=== PATIENT | male | born 1960 | race Caucasian/White ===

== ENCOUNTER 2018-09-22 21:54 | Emergency (ER) | payer SELFPAY ==
[2018-09-22 21:55] VITALS: BP 119/93
[2018-09-22] MEDS ORDERED: CLON-388 PO (21:57)
--- NOTE | 2018-09-22 21:59 | ER Report ---
History and Physical Time Seen By MD: 21:52 Hx. of Stated Complaint: BEEN DRINKING SINCE 7AM. FOUND AT [facility], FALLING DOWN, SENIOR LIVING CLEARANCE HPI/ROS CHIEF COMPLAINT: Skilled Nursing clearance HISTORY OF PRESENT ILLNESS: 58-year-old male brought in by police for long-term clearance. Patient with heavily slurred speech, appears grossly intoxicated. He has no injuries. He voices no complaints. He denies significant past medical history. REVIEW OF SYSTEMS: Respiratory: No cough, no dyspnea. Cardiovascular: No chest pain, no palpitations. Gastrointestinal: No vomiting, no abdominal pain. Musculoskeletal: No back pain. Home Meds Reported Medications Clonazepam (CLONAZEPAM) 0.5 Mg Tab.rapdis, 0.5 MG PO BID, #6 TAB 09/22/18 Reviewed Nurses Notes: Yes Old Medical Records Reviewed: Yes Constitutional Vital Sign - Last 24 Hours 09/22/18 21:55 Temp 96.8 Pulse 80 Resp 12 B/P (MAP) 119/93 Pulse Ox 95 O2 Delivery Room Air Physical Exam General Appearance: The patient is alert, has no immediate need for airway protection and no current signs of toxicity.. Vital signs stable, afebrile, pulse ox normal, palpation of the head and neck reveal no tenderness or trauma HEENT: Pupils equal and round no injection. Oropharynx without dental trauma, heavy odor of EtOH Respiratory: Chest is non tender, lungs are clear to auscultation. Cardiac: regular rate and rhythm Gastrointestinal: Abdomen is soft and non tender, no masses, bowel sounds normal. Musculoskeletal: Neck: Neck is supple and non tender. Extremities have full range of motion and are non tender. Skin: No rashes or lesions. DIFFERENTIAL DIAGNOSIS: After history and physical exam differential diagnosis was considered for long-term clearance, alcohol intoxication, polysubstance abuse Medical Decision Making ED Course/Re-evaluation ED Course Patient was admitted to an examination room. H&P was done. The differential diagnoses was considered. On conical examination. Patient has no significant findings. He appears grossly alcohol intoxicated. He has stable vital signs. He is medical cleared for long-term admission. Decision to Disposition Date: Sep 22, 2018 Decision to Disposition Time: 21:59 Depart Departure Latest Vital Signs Vital Signs Date Time Temp Pulse Resp B/P (MAP) Pulse Ox O2 Delivery O2 Flow Rate FiO2 09/22/18 21:55 96.8 80 12 119/93 95 Room Air Impression: Primary Impression: Medical clearance for incarceration Additional Impression: Alcohol intoxication Condition: Improved Disposition: [facility] TO [facility]/CORRECTIONAL F Patient Instructions: Alcohol Intoxication (ED) Additional Instructions: Medical cleared for long-term admission Problem Qualifiers Additional Impression: Alcohol intoxication Complication of substance-induced condition: uncomplicated Qualified Codes: F10.920 - Alcohol use, unspecified with intoxication, uncomplicated ERIKA HOFFMAN DO Sep 22, 2018 21:59
== END 2018-09-22 22:00 | disposition home or self-care (01) ==
LOC: ER 22:00
DX: F10.920 Alcohol use, unspecified with intoxication, uncomplicated (principal)
CPT/HCPCS: 99281